=== PATIENT | male | born 1945 | race African-American/Black ===

== ENCOUNTER 2020-06-02 17:27 | Emergency (ER) | payer OTHER ==
[~2020-06-02] VITALS: Ht 188 cm; Wt 99.8 kg
[~2020-06-02 17:27] MED LIST: CHLORTHALIDONE25 MG; FOSINOPRIL SODI20 MG; METROPOLOL; SIMVASTATIN20 MG
== END 2020-06-02 19:40 | disposition home or self-care (01) ==
LOC: ER 17:27
DX: R31.0 Gross hematuria (principal)

== ENCOUNTER 2020-07-14 06:40 | Day surgery (SDC) | payer OTHER ==
[~2020-07-14 06:40] MED LIST changes: +DERMACINRX THE135 GM TOP; +DIPROLENE 0.05%15 GM; +PROPECIA1 MG PO; +RAPAFLO8 MG PO
== END 2020-07-14 14:00 | disposition home or self-care (01) ==
LOC: CIR.AMB 06:40
PROVIDERS: ATTEND Urology
DX: C67.0 Malignant neoplasm of trigone of bladder (principal); C67.5 Malignant neoplasm of bladder neck; Z20.828 Contact with and (suspected) exposure to other viral communicable diseases

== ENCOUNTER 2021-02-16 06:20 | Day surgery (SDC) | payer OTHER ==
[~2021-02-16 06:20] MED LIST changes: +TAMS0.4C PO
== END 2021-02-16 14:10 | disposition home or self-care (01) ==
LOC: CIR.AMB 06:20
PROVIDERS: ATTEND Urology
DX: C67.1 Malignant neoplasm of dome of bladder (principal); C67.5 Malignant neoplasm of bladder neck; Z20.822 Contact with and (suspected) exposure to COVID-19

== ENCOUNTER 2021-07-13 05:35 | Day surgery (SDC) | payer OTHER ==
[~2021-07-13 05:35] MED LIST changes: +ADCIRCA20 MG PO; +CHLORTHALIDONE25 MG PO
== END 2021-07-13 14:30 | disposition home or self-care (01) ==
LOC: CIR.AMB 05:35
PROVIDERS: ATTEND Urology
DX: C67.1 Malignant neoplasm of dome of bladder (principal); C67.5 Malignant neoplasm of bladder neck; Z20.822 Contact with and (suspected) exposure to COVID-19

== ENCOUNTER 2021-07-13 19:02 | Emergency (ER) | payer OTHER ==
[~2021-07-13] VITALS: Ht 188 cm; Wt 84.8 kg
== END 2021-07-13 22:58 | disposition home or self-care (01) ==
LOC: ER 19:02
DX: T83.091A Other mechanical complication of indwelling urethral catheter, initial encounter (principal)